=== PATIENT | male | born 2005 | race Caucasian/White ===

== ENCOUNTER 2024-02-27 14:11 | Outpatient (CLI) | payer OTHER, SELFPAY ==
[2024-02-27 14:36] LABS: Hematocrit 49.8 % (42.0-52.0); Hemoglobin 17.4 g/dL (14.0-18.0); Mean Corpuscular HGB Conc 34.9 g/dl (32-36); Mean Corpuscular Hemoglobin 30.4 pg (26-34); Mean Corpuscular Volume 86.9 fl (80-100); Mean Platelet Volume 9.2 fl (7.4-10.4); Platelet Count Result 258 k/mm3 (150-375); Red Blood Count 5.73 M/mm3 (4.6-6.20); Red Cell Distribution Width 12.2 % (11.5-14.5)
[2024-02-27 14:53] LABS: Alanine Aminotransferase 41 U/L (6-50); Albumin Level 4.8 g/dL (3.5-5.1); Alkaline Phosphatase 61 U/L (38-126); Anion Gap 7 mmol/L (4-12); Aspartate Amino Transferase 31 U/L (17-59); Bilirubin,Total 0.6 mg/dL (0.2-1.3); Blood Urea Nitrogen 15 mg/dL (9-20); Calcium 9.6 mg/dL (8.4-10.2); Carbon Dioxide 30 mmol/L (22-30); Chloride 102 mmol/L (98-107); Cholesterol 167 mg/dL (0-200); Estimated Glomerular Filt Rate > 60; Glucose 88 mg/dL (65-110); HDL Direct 51 mg/dL; Potassium 4.6 mmol/L (3.4-5.0); Sodium 139 mmol/L (137-145); Triglycerides 151 mg/dL (<150)
[2024-02-27 15:03] LABS: Hemoglobin A1C 4.9 % (<5.7)
[2024-02-27 15:04] LABS: LDL Cholesterol Direct 88 mg/dL
[2024-02-27 15:23] LABS: Thyroid Stimulating Hormone 0.921 uIU/mL (0.465-4.680)
[2024-02-27 17:09] LABS: Vitamin D 25 Hydroxy 37.1 ng/mL
== END 2024-02-27 14:12 | disposition home or self-care (01) ==
DX: F41.1 Generalized anxiety disorder (principal)
CPT/HCPCS: 36415; 80053; 80061; 82306; 82607; 83036; 84443; 85027